=== PATIENT | male | born 1960 | race Caucasian/White ===

== ENCOUNTER 2017-01-17 09:49 | Emergency (ER) | payer SELFPAY ==
[~2017-01-17] VITALS: Ht 182.9 cm; Wt 93.0 kg
[~2017-01-17 09:49] MED LIST: METH5TAB PO; VENTAER INH
[2017-01-17 09:51] VITALS: BP 118/66; PULSE 64; RESP 20; TEMP 97.3; O2SAT 97
[2017-01-17] MEDS ORDERED: BACT800T5 PO (10:09)
[2017-01-17] MEDS ORDERED: HIBI4LIQ TOPICAL (10:09)
[2017-01-17] MEDS ORDERED: CEPH-460 PO (10:09)
--- NOTE | 2017-01-17 10:10 | PD ---
HPI Chief Complaint: Skin Problem Time Seen by Provider: 10:05 Travel History International Travel<30 days: No Contact w/Intl Traveler<30days: No Traveled to known affect area: No History of Present Illness HPI patient is a 56-year-old male presents emergency Department with skin lesions. 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 He states that he frequently gets sawdust on the upper extremities and has been having issues with approximately one year of intermittent papules on the upper extremities. He states that these occasionally have some discharge, then become itchy and then crusted and eventually heal with scars. He now has several of them on the volar aspects of the bilateral upper extremities. Notes that he has more present today than he ever has at one time, some of them have been having slight discharge, and they' re painful. No fevers or chills. PFSH Past Medical History Asthma: No Blood Disorders: No Heart Rhythm Problems: No Cardiovascular Problems: No High Cholesterol: No Chest Pain: Yes Congestive Heart Failure: No COPD: No Diminished Hearing: No Endocrine: No GERD: Yes Genitourinary: No Immune Disorder: No Musculoskeletal: Yes Neurologic: No Reproductive: No Respiratory: No Migraines: Yes Seizures: Yes Sleep Apnea: No Past Surgical History Other Surgery: Yes (PLATE LEFT EYE FROM TRAUMA) Social History Alcohol Use: Yes (SOCIAL) Tobacco Use: Yes (1/2 PPD) Substance Use: Yes (COCAINE ) Allergies-Medications (Allergen,Severity, Reaction): Coded Allergies: *MDRO Multi-Drug Resistant Organism (Verified Adverse Reaction, Unknown, ) MRSA (arm-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 One has serosanguineous-type discharge but no active purulence. There is surrounding erythema and slight induration but no fluctuance. HEAD: Normocephalic. EYES: No scleral icterus. No injection or drainage. ENT: Mucous membranes pink and moist. CARDIOVASCULAR: Regular rate and rhythm. RESPIRATORY: No accessory muscle use. MUSCULOSKELETAL: Moves all extremities normally NEUROLOGICAL: Awake and alert. Normal speech. PSYCHIATRIC: Appropriate mood and affect; insight and judgment normal. Data Data Last Documented VS Vital Signs Date Time Temp Pulse Resp B/P Pulse Ox O2 Delivery O2 Flow Rate FiO2 01/17/17 10:05 18 01/17/17 09:51 97.3 64 118/66 97 Room Air MDM Medical Decision Making Medical Screen Exam Complete: Yes Emergency Medical Condition: Yes Medical Record Reviewed: Yes Differential Diagnosis 56-year-old male with history of MRSA here with complaint of lesions to the arms. Exam are consistent with infected papules with concurrent cellulitis. No evidence of abscess at this time. Given his history of MRSA, will treat for this presumptively. Narrative Course Patient was given Bactrim and Keflex for home. Hibiclens wash. Diagnosis Primary Impression: Cellulitis of arm Qualified Code: L03.119 - Cellulitis of upper extremity, unspecified laterality Referrals: [facility] as needed Additional Instructions: Bactrim and Keflex as prescribed. These medications are free and/or $4 at [facility]. Hibiclens body wash as instructed. If you cannot afford this use Dial antibacterial soap. Follow-up with [facility], this is a new clinic in [facility] and accepts patients health insurance. Med/Other Pt SpecificInfo: Prescription(s) given Scripts Chlorhexidine Gluconate Topical (Hibiclens Topical)4% Liq1 Applic TOPICAL ONCE #118 ML Ref 0 Prov:Birgit Bedoya MD 01/17/17 Cephalexin (Keflex)500 Mg [id number] Mg PO TID 7 Days Ref 0 Prov:Birgit Bedoya MD 01/17/17 Sulfamethoxazole-Trimethoprim (Bactrim DS)800-160 Mg Tab1 Tab PO BID #14 TAB Ref 0 Prov:Birgit Bedoya MD 01/17/17 Disposition: 01 DISCHARGE HOME Condition: Stable Birgit Bedoya MD Jan 17, 2017 10:10
== END 2017-01-17 10:33 | disposition home or self-care (01) ==
LOC: NEPD 09:49
DX: L03.114 Cellulitis of left upper limb (principal); L03.113 Cellulitis of right upper limb; K21.9 Gastro-esophageal reflux disease without esophagitis; R56.9 Unspecified convulsions; F17.200 Nicotine dependence, unspecified, uncomplicated; Z79.899 Other long term (current) drug therapy
CPT/HCPCS: 99284

== ENCOUNTER 2017-04-20 17:56 | Emergency (ER) | payer SELFPAY ==
[~2017-04-20] VITALS: Ht 182.9 cm; Wt 75.0 kg
[~2017-04-20 17:56] MED LIST changes: +BACT800T5 PO; +CEPH-460 PO; +HIBI4LIQ TOPICAL; -VENTAER INH
[2017-04-20 18:01] VITALS: BP 139/88; PULSE 115; RESP 18; TEMP 97.7; O2SAT 97
== END 2017-04-20 19:24 | disposition left against medical advice (07) ==
LOC: NED 17:56
DX: Z53.21 Procedure and treatment not carried out due to patient leaving prior to being seen by health care provider (principal)
CPT/HCPCS: 99281